=== PATIENT | female | born 1985 | race Caucasian/White ===

== ENCOUNTER 2018-12-28 13:36 | Emergency (ER) | payer BC ==
[~2018-12-28] VITALS: Wt 65.0 kg
[2018-12-28 13:40] VITALS: BP 133/88; PULSE 75; RESP 20
[2018-12-28] MEDS ORDERED: ACET500C5 PO (16:19)
[2018-12-28] MEDS ORDERED: CEPH-443 PO (16:19)
[2018-12-28] MEDS ORDERED: CYCL10TA7 PO (16:19)
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
== END 2018-12-28 17:00 | disposition home or self-care (01) ==
LOC: FTE 13:36
DX: M54.9 Dorsalgia, unspecified (principal); M54.2 Cervicalgia; M25.562 Pain in left knee; M25.532 Pain in left wrist
CPT/HCPCS: 73562; 76705; 81001; 81025